=== PATIENT | female | born 1940 | race Caucasian/White ===

== ENCOUNTER 2022-11-30 10:00 | Day surgery (SDC) | payer MEDICARE, OTHER ==
[2022-11-28 15:53] VITALS: BMI 37.0
[2022-11-30] MEDS ORDERED: Neomycin-Polymyxin 1 ML AMP ONE ×2 (10:02→13:09)
[2022-11-30] MEDS ORDERED: Bupivacaine PF 0.5% 30 ML VIAL ONE (10:02)
[2022-11-30] MEDS ORDERED: CEFAZOLIN 2 GM VIAL ONE (11:42)
[2022-11-30] MEDS ORDERED: Ipratropium/Albuterol 3 ML NEB ONE ×2 (11:50→14:31)
[2022-11-30 14:42] LABS: Hemoglobin 14.6 g/dL (12.0-15.5)
== END 2022-11-30 15:58 | disposition home or self-care (01) ==
LOC: CSHSDC 10:00
PROVIDERS: ATTEND Podiatrist Foot & Ankle Surgery
PROC: 0SGN0JZ Fusion of Left Metatarsal-Phalangeal Joint with Synthetic Substitute, Open Approach (ICD-10-PCS; principal; 2022-11-30)
PROC: 0SGQ0JZ Fusion of Left Toe Phalangeal Joint with Synthetic Substitute, Open Approach (ICD-10-PCS; 2022-11-30)
PROC: 0QBP0ZZ Excision of Left Metatarsal, Open Approach (ICD-10-PCS; 2022-11-30)
DX: M20.12 Hallux valgus (acquired), left foot (principal); M20.42 Other hammer toe(s) (acquired), left foot; M21.622 Bunionette of left foot; I48.0 Paroxysmal atrial fibrillation; I50.32 Chronic diastolic (congestive) heart failure; M77.50 Other enthesopathy of unspecified foot and ankle; Z68.41 Body mass index [BMI] 40.0-44.9, adult; F33.1 Major depressive disorder, recurrent, moderate; I48.91 Unspecified atrial fibrillation; I48.92 Unspecified atrial flutter; I10 Essential (primary) hypertension; E78.5 Hyperlipidemia, unspecified; Z79.01 Long term (current) use of anticoagulants; Z79.899 Other long term (current) drug therapy; Z88.5 Allergy status to narcotic agent; Z95.0 Presence of cardiac pacemaker; Z98.890 Other specified postprocedural states
CPT/HCPCS: 28110; 28285 ×2; 28750; 73620; 85014; 85018; C1713 ×5; 36415; J7620; S0020

== ENCOUNTER 2023-03-22 09:49 | Day surgery (SDC) | payer MEDICARE, OTHER ==
[2023-03-21 09:22] VITALS: BMI 39.3
[~2023-03-22 09:49] MED LIST: Bupivacaine 0.25% HCL 30 ML VIAL ONE
[2023-03-22 10:50] LABS: Hemoglobin 15.6 g/dL (12.0-15.5); Mean Corpuscular HGB CONC 32.9 g/dL (32.0-36.0); Mean Corpuscular Hemoglobin 33.1 pg (27.0-33.0); Mean Corpuscular Volume 100.6 fl (81.6-98.3); Platelet Count 151 10x3/uL (150-450); RBC Distribution Width 12.6 % (11.5-14.5); Red Blood Cell (RBC) Count 4.71 10x6/uL (3.90-5.03); White Blood Cell (WBC) Count 8.9 10x3/uL (3.5-10.5)
[2023-03-22] MEDS ORDERED: Lidocaine 1% MPF 2 ML VIAL ONE (10:53)
[2023-03-22 10:56] LABS: Anion Gap 16 mmol/L (10-20); BUN (Urea Nitrogen) 18 mg/dL (9.8-20.1); Calc. Creatinine Clearance 80 mL/min (70-130); Calcium 8.9 mg/dL (7.8-10.44); Carbon Dioxide 24 mmol/L (23-31); Chloride 105 mmol/L (98-107); Estimated GFR 63; Glucose 109 mg/dL (83-110); Potassium 4.2 mmol/L (3.5-5.1); Sodium 141 mmol/L (136-145)
[2023-03-22] MEDS ORDERED: PROPOFOL 20 ML ONE (11:18)
[2023-03-22] MEDS ORDERED: Fentanyl 100 MCG/2 ML VIAL ONE ×2 (11:18→13:57)
[2023-03-22] MEDS ORDERED: CEFAZOLIN 2 GM VIAL ONE (13:54)
[2023-03-22] MEDS ORDERED: PHENYLEPHRINE-NS 100 MCG/ML 10 ML SYRINGE ONE (14:26)
== END 2023-03-22 15:35 | disposition home or self-care (01) ==
LOC: CSHSDC 09:49
PROVIDERS: ATTEND Podiatrist Foot & Ankle Surgery
PROC: 2W5RXYZ Removal of Other Device on Left Lower Leg (ICD-10-PCS; principal; 2023-03-22)
DX: T84.197D Other mechanical complication of internal fixation device of bone of left lower leg, subsequent encounter (principal); Z88.5 Allergy status to narcotic agent; Z91.018 Allergy to other foods; I10 Essential (primary) hypertension; E78.5 Hyperlipidemia, unspecified; E03.9 Hypothyroidism, unspecified; K21.9 Gastro-esophageal reflux disease without esophagitis; Z79.899 Other long term (current) drug therapy; Y83.1 Surgical operation with implant of artificial internal device as the cause of abnormal reaction of the patient, or of later complication, without mention of misadventure at the time of the procedure; Z95.0 Presence of cardiac pacemaker
CPT/HCPCS: 80048; 85027; 93005; 93010; J2704; J3010; S0020

== ENCOUNTER 2023-12-27 08:45 | Day surgery (SDC) | payer MEDICARE, OTHER ==
[2023-12-25 14:09] VITALS: BMI 36.4
[2023-12-27] MEDS ORDERED: Bupivacaine PF 0.5% 30 ML VIAL ONE (10:10)
[2023-12-27] MEDS ORDERED: fentaNYL 50 mcg/mL 1 mL Vial ONE (10:47)
[2023-12-27] MEDS ORDERED: Lidocaine 1% PF 5 ML VIAL ONE (10:47)
[2023-12-27] MEDS ORDERED: Ondansetron PF 4 MG/2 ML Vial ONE (10:47)
[2023-12-27] MEDS ORDERED: PHENYLEPHRINE-NS 100 MCG/ML 10 ML SYRINGE ONE (10:47)
[2023-12-27] MEDS ORDERED: ePHEDrine Sulfate 50 MG/10 ML VIAL ONE (10:47)
[2023-12-27] MEDS ORDERED: PROPOFOL 20 ML ONE (10:47)
[2023-12-27] MEDS ORDERED: CEFAZOLIN 2 GM VIAL ONE (10:53)
== END 2023-12-27 13:10 | disposition home or self-care (01) ==
LOC: CSHSDC 08:45
PROVIDERS: ATTEND Podiatrist Foot & Ankle Surgery
PROC: 0Y6V0Z2 Detachment at Right 4th Toe, Mid, Open Approach (ICD-10-PCS; principal; 2023-12-27)
DX: M20.41 Other hammer toe(s) (acquired), right foot (principal); I48.0 Paroxysmal atrial fibrillation; I10 Essential (primary) hypertension; Z95.0 Presence of cardiac pacemaker; Z95.2 Presence of prosthetic heart valve; Z79.899 Other long term (current) drug therapy; Z90.49 Acquired absence of other specified parts of digestive tract; Z90.710 Acquired absence of both cervix and uterus; Z88.5 Allergy status to narcotic agent; Z91.010 Allergy to peanuts
CPT/HCPCS: 28825; 73620; J3010; J0665; J2405; J2704